=== PATIENT | female | born 1945 | race Caucasian/White ===

== ENCOUNTER 2019-03-19 07:13 | Day surgery (SDC) | payer MEDICARE ==
[~2019-03-19] VITALS: Ht 154.9 cm; Wt 74.8 kg
[~2019-03-19 07:13] MED LIST: AMLO5TAB6 PO; ASPI81TA85 PO; LOSA100T50 PO; LR 1,000 ML IV ONE; ROSU10TA6 PO; ceFAZolin SOD 2 GM in IV 1 EA IV ONE
[2019-03-19] MEDS ORDERED: PROBCAP14 PO (07:49)
[2019-03-19 07:57] LABS: INR 0.99; PROTHROMBIN TIME 12.8 SECONDS (11.8-14.0)
[2019-03-19] MEDS ORDERED: MIDAZOLAM INJ 2 MG/2 ML VIAL (J2250) As Ordered ONE (08:15)
[2019-03-19] MEDS ORDERED: PROPOFOL 200 MG/20 ML VIAL As Ordered ONE (08:15)
[2019-03-19] MEDS ORDERED: ROCURONIUM BROMIDE 50 MG/5 ML VIAL As Ordered ONE (08:15)
[2019-03-19] MEDS ORDERED: LIDOCAINE 2% INJ 100 MG/5 ML SDV (FOR ANES.) As Ordered ONE (08:15)
[2019-03-19] MEDS ORDERED: fentaNYL 100 MCG/2 ML INJECTION (J3010) As Ordered ONE (08:16)
[2019-03-19] MEDS ORDERED: SCOPOLAMINE 1MG TRANSDERMAL PATCH As Ordered ONE (08:29)
[2019-03-19] MEDS ORDERED: SCOPOLAMINE 1MG TRANSDERMAL PATCH TOP ONE (08:45)
[2019-03-19] MEDS ORDERED: CONRAY-60 60% 50ML VIAL (Q9961) As Ordered ONE (09:17)
[2019-03-19] MEDS ORDERED: METOCLOPRAMIDE INJ 10MG/2ML VIAL (J2765) As Ordered ONE (09:40)
[2019-03-19] MEDS ORDERED: ePHEDrine SULFATE 25 MG/5 ML(5MG/ML) SYRINGE As Ordered ONE (09:44)
[2019-03-19] MEDS ORDERED: ONDANSETRON 4MG/2ML VIAL (J2405) As Ordered ONE (09:57)
[2019-03-19] MEDS ORDERED: ACETAMINOPHEN 1000MG 100ML IV BTL (OFIRMEV) (J0131 PER 10MG) As Ordered ONE (09:58)
[2019-03-19] MEDS ORDERED: ONDANSETRON 4MG/2ML VIAL (J2405) IV PRN (10:30)
[2019-03-19] MEDS ORDERED: fentaNYL 100 MCG/2 ML INJECTION (J3010) IV PRN (10:30)
[2019-03-19] MEDS ORDERED: PERCOCET 5MG/325MG TAB PO PRN (10:30)
[2019-03-19] MEDS ORDERED: LR 1,000 ML IV SCH (10:30)
--- NOTE | 2019-03-19 10:40 | REP ---
C-ARM VIEW ABDOMEN: C-arm view abdomen performed during ureteral stent placement. A wire and catheter is seen in the right ureter. Right pelvicaliceal system is partially opacified with contrast and is relatively moderately dilated. 13 seconds of fluoroscopy time utilized. Electronically Signed by Marco Pleitez MD 03/19/2019 03:50 P
[2019-03-19] MEDS ORDERED: ACETAMINOPHEN TAB 650MG DOSE (2X325MG) PO PRN (10:45)
[2019-03-19 11:41] VITALS: BP 117/58
--- NOTE | 2019-03-19 12:25 | RO ---
DATE OF PROCEDURE: 03/19/2019 PREPROCEDURE DIAGNOSIS: Right ureteral stone. POSTPROCEDURE DIAGNOSIS: Right ureteral stone. PROCEDURE: Cystoscopy, right ureteroscopy with laser lithotripsy and basket extraction of stones, right retrograde pyelogram with intraoperative interpreted images, right ureteral stent removal. SURGEON: Dr. Garth Park. BUFFING WHEEL RAKER: None. ANESTHESIA: General. OPERATIVE INDICATIONS: This is a 74-year-old female who was found to have an obstructing 6 mm distal right ureteral stone recently. She had a right ureteral stent placed. She was brought to the operating room today for definitive management of her stones. DESCRIPTION OF PROCEDURE: The patient was brought to the operating room and general anesthesia was induced. Prophylactic antibiotics were infused. She was then placed in the dorsal lithotomy position and prepped and draped in the usual sterile fashion. A rigid cystoscope was inserted into the urethral meatus and advanced up to the bladder. The previously placed stent was grasped and withdrawn to the distal end with seeing perfusion from the urethral meatus. A guidewire was advanced up the stent and into the right collecting system. The stent was then completely removed. I then went up the right collecting system with a short semirigid ureteroscope and within the distal ureter, the 6 mm stone was seen. The stone was then fragmented into smaller pieces using a 272 micron laser fiber. All the fragments were then removed using the basket. Once the fragments were removed, I examined the more proximal ureter and no additional stones were seen. A retrograde pyelogram was performed and notable for moderate severe right hydronephrosis and no extravasation. I then withdrew the ureteroscope and removed the wire. I then inserted the cystoscope back into the bladder and observed the right ureteral orifice. The right ureteral orifice effluxed urine without any difficulty. Since there is not moderate edema inside the ureter, and the ureter effluxed easily, I decided not to place a stent. The bladder was then emptied of all fluids and this marked the conclusion of the procedure. The patient was then taken out of the dorsal lithotomy position, awakened from anesthesia and transported to the recovery room in stable condition. ESTIMATED BLOOD LOSS: 5 mL COMPLICATIONS: None. SPECIMENS: Kidney stone fragments. PLAN: The patient will followup in the clinic in approximately 1 month for a postoperative visit. NHAN
== END 2019-03-19 12:35 | disposition home or self-care (01) ==
LOC: M SDC 07:13
PROVIDERS: ATTEND Urology
DX: N20.0 Calculus of kidney (principal); N20.1 Calculus of ureter; I10 Essential (primary) hypertension; Z79.899 Other long term (current) drug therapy
CPT/HCPCS: 36415; 52356; 74420; 82360; 85610; 88300; C1769; J0131; J0690; J2250; J2405; J2765; J3010; Q9961

== ENCOUNTER → 2019-04-23 | Outpatient (REF) | payer MEDICARE ==
[~2019-04-23] MED LIST changes: -LR 1,000 ML IV ONE; +PROBCAP14 PO; -ceFAZolin SOD 2 GM in IV 1 EA IV ONE
[2019-04-23 13:47] LABS: APPEARANCE, URINE CLEAR (CLEAR); BACTERIA, URINE AUTO NEGATIVE (NEGATIVE); BILIRUBIN, URINE AUTO NEGATIVE (NEGATIVE); BLOOD, URINE BLOOD 1+ (NEGATIVE); COLOR, URINE YELLOW (YELLOW); GLUCOSE, URINE (UA) AUTO NEGATIVE (NEGATIVE); KETONE, URINE AUTO NEGATIVE (NEGATIVE); LEUKOCYTE ESTERASE, URINE AUTO NEGATIVE (NEGATIVE); MUCUS, URINE SMALL (NEGATIVE); NITRITE, URINE AUTO NEGATIVE (NEGATIVE); PROTEIN, URINE AUTO NEGATIVE (NEGATIVE); RBC, URINE AUTO 1 /HPF (0-3); SPECIFIC GRAVITY URINE AUTO 1.006 (1.002-1.035); SQUAMOUS EPITHELIAL CELL UR AU 0 /HPF (0-6); UROBILINOGEN, URINE AUTO 0.2 mg/dL (0.0-2.0); WBC, URINE AUTO 0 /HPF (0-3)
== END ==
LOC: M SMT 12:56
PROVIDERS: ATTEND Nurse Practitioner Women's Health
DX: N13.2 Hydronephrosis with renal and ureteral calculous obstruction (principal)
CPT/HCPCS: 81001; 87086; G0463